=== PATIENT | female | born 1995 | race Hispanic/Latino ===

== ENCOUNTER 2018-06-30 06:46 | Emergency (ER) | payer MEDICAID, OTHER ==
[2018-06-30] MEDS ORDERED: KETOROLAC TROMETHAMINE 30MG/ML ONE (07:17)
[2018-06-30] MEDS ORDERED: METHYLPREDNISOLONE SOD SUCC 125MG/2ML VIAL ONE (07:17)
== END 2018-06-30 07:50 | disposition home or self-care (01) ==
LOC: EDH 06:46
DX: M62.830 Muscle spasm of back (principal); M54.6 Pain in thoracic spine; R51 Headache
CPT/HCPCS: 81025; 96372 ×2; 99283; J1885; J2930

== ENCOUNTER 2022-12-30 11:07 | Emergency (ER) | payer BC ==
[~2022-12-30] VITALS: Ht 157.5 cm; Wt 96.6 kg
[2022-12-30 15:48] VITALS: BP 159/61
== END 2022-12-30 15:48 | disposition home or self-care (01) ==
LOC: EDH 11:07
DX: R51.9 Headache, unspecified (principal); E78.00 Pure hypercholesterolemia, unspecified; Z98.890 Other specified postprocedural states
CPT/HCPCS: 70450; 72125; 81025

== ENCOUNTER 2023-10-25 13:53 | Emergency (ER) | payer BC, OTHER ==
[~2023-10-25] VITALS: Ht 157.5 cm; Wt 102.1 kg
[2023-10-25 16:16] LABS: BASOPHILS # (AUTO) 0.04 K/uL (0.00-0.20); BASOPHILS % (AUTO) 0.4 % (0.0-5.0); EOSINOPHILS # (AUTO) 0.35 K/uL (0.00-0.70); EOSINOPHILS % (AUTO) 3.6 % (0.0-8.0); HEMATOCRIT 39.4 % (36-48); IMMATURE GRANULOCYTE ABSOLUTE 0.03 K/uL (0-1); LYMPHOCYTES # (AUTO) 2.1 K/uL (1.0-4.8); MEAN CORPUSCULAR HGB CONC 35.3 g/dL (32.0-36.0); MEAN CORPUSCULAR VOLUME 90.8 fL (79-99); MONOCYTES # (AUTO) 0.5 K/uL (0.1-1.0); MONOCYTES % (AUTO) 5.1 % (3.0-13.0); NEUTROPHILS # (AUTO) 6.6 K/uL (1.8-7.7); NEUTROPHILS % (AUTO) 68.6 % (40.0-77.0); PLATELET COUNT (AUTO) 374 K/uL (130-400); RED BLOOD CELL COUNT(AUTO) 4.34 MIL/uL (4.00-5.50); RED CELL DISTRIBUTION WIDTH 11.6 % (11.0-15.5); WHITE BLOOD COUNT (AUTO) 9.6 K/uL (4.8-10.8)
[2023-10-25 16:28] LABS: CREATININE 0.7 mg/dL (0.5-1.0); POTASSIUM 4.1 mmol/L (3.5-5.1)
[2023-10-25 16:29] LABS: INR <= 0.93 (0.85-1.15); PROTHROMBIN TIME 10.3 SEC (9.6-11.6)
[2023-10-25 16:37] LABS: ALBUMIN 3.9 g/dL (3.5-5.0); BILIRUBIN,TOTAL 0.6 mg/dL (0.2-1.0); TOTAL PROTEIN, SERUM 7.6 g/dL (6.0-8.3)
[2023-10-25 16:40] LABS: B-TYPE NATRIURETIC PEPTIDE 13 pg/mL (0-100)
[2023-10-25 18:13] VITALS: BP 146/76; PULSE 68; RESP 17; O2SAT 100
== END 2023-10-25 18:14 | disposition home or self-care (01) ==
LOC: EDH 13:53
DX: R07.89 Other chest pain (principal); E78.00 Pure hypercholesterolemia, unspecified; Z98.890 Other specified postprocedural states
CPT/HCPCS: 36415; 71045; 80053; 81025; 83880; 84484; 85025; 85610; 93005